=== PATIENT | female | born 1990 | race African-American/Black ===

== ENCOUNTER 2016-08-29 08:16 | Emergency (ER) | payer OTHER ==
--- NOTE | 2016-08-29 11:01 | ED CLINICAL REPORT ---
Clinical Report - Physicians/Mid Levels [facility] [address] [place] [address] 08/29/2016 8:19 Patient: TAVON GUIDRY Time Seen: 09:06; initial patient contact. Arrived- By private vehicle. Historian- patient. HISTORY OF PRESENT ILLNESS Chief Complaint: "FLU". This started about 6 days ago and is still present. The patient has had a cough, nasal congestion, a sore throat, fever and chills. She has had a nasal discharge. No skin rash, headache or sputum production. No known contact with a sick individual. Similar symptoms previously: None. Recent medical care: Not recently seen/assessed. REVIEW OF SYSTEMS The patient has had fatigue and sinus pain. No toothache or abdominal pain. All systems otherwise negative, except as recorded above. PAST HISTORY Chronic left shoulder pain. Dental infection. Surgeries: No history of previous surgery. Additional Surgeries: no known surgeries. Medications: Iud. Amoxicillin Oral (started 1 week ago for dental infx). Ibuprofen Oral. Robitussin. Allergies: Bee Sting. Severe(Anaphylaxis) Compazine. Severe(anxiety) Phenergan. Severe(hives). SOCIAL HISTORY Light tobacco smoker. History of drug use: marijuana. No alcohol use. ADDITIONAL NOTES The nursing notes have been reviewed with agreement regarding the chief complaint, PMH and patient medications and allergies. PHYSICAL EXAM Vital Signs: 08/29/2016 08:44 BP: 102/64. HR: 73. RR: 16. O2 saturation: 100%. Temp: 98.6 F. Pain level now: 8/10. Have been reviewed as normal. Appearance: Alert. No acute distress. Head: Tenderness present to percussion/palpation of the sinuses. Eyes: Eyes normal inspection. ENT: Mild generalized pharyngeal erythema with right tonsillar swelling and left tonsillar swelling. Neck: No JVD. CVS: Normal heart rate and rhythm. Heart sounds normal. Respiratory: No respiratory distress. Breath sounds normal. Abdomen: Soft and nontender. No organomegaly. Skin: Normal skin color. No rash. Extremities: No lower extremity edema. Neuro: Oriented X 3. LABS, X-RAYS, AND EKG Laboratory Tests: CBC w Diff: (JOBY: 08/29/2016 09:30) ( MsgRcvd 08/29/2016 10:05) Final results Test Result Flag Units (Reference) WHITE BLOOD COUNT 11.4 K/uL (4.5-11.5) RED BLOOD COUNT 5.30 H M/uL (4.00-5.20) HEMOGLOBIN 14.5 gm/dL (12.0-16.0) HEMATOCRIT 45.8 % (36.0-46.0) MEAN CELL VOLUME 86 fL (80-100) MEAN CORPUSCULAR HGB 27 pg (26-34) MEAN CORPUSCULAR HGB CONC 32 g/dL (31-37) RED CELL DISTRIBUTION WIDTH 13.7 % (11.6-14.8) PLATELET COUNT 316 K/uL (150-400) NEUTROPHIL % 75.3 H % (50-75) LYMPH % 15.7 L % (25-40) MONO % 6.8 % (3-14) EOSINOPHIL % 1.9 % (0-4) BASOPHIL % 0.3 % (0-2) CMP: (JOBY: 08/29/2016 09:30) ( MsgRcvd 08/29/2016 10:06) Final results Test Result Flag Units (Reference) GLUCOSE 90 mg/dL (70-110) BUN 18 mg/dL (7-18) CREATININE 0.8 mg/dL (0.6-1.3) Estimated GFR >60 mL/min Estimated GFR- >60 mL/min Note: Persistent reduction over 3 months in eGFR<60 mL/min/1.73 m2 defines CKD. Patients with eGFR values>=60 mL/min/1.73 m2 may also have CKD if evidence ofpersistent proteinuria. Additional information may be foundat www.kidney.org. SODIUM 139 mmol/L (136-145) POTASSIUM 4.2 mmol/L (3.5-5.1) CHLORIDE 103 mmol/L (98-107) CARBON DIOXIDE 25 mmol/L (21-32) CALCIUM 8.5 mg/dL (8.5-10.1) TOTAL PROTEIN 8.4 H g/dL (6.4-8.2) ALBUMIN 4.2 g/dL (3.3-5.0) BILIRUBIN, TOTAL 0.6 mg/dL (0.0-1.0) ALKALINE PHOSPHATASE 85 U/L (46-116) AST (SGOT) 20 U/L (15-37) ALT (SGPT) 19 U/L (12-78) Culture, Strep Screen: (JOBY: 08/29/2016 09:55) ( [facility] 08/29/2016 10:31) Final results Test Result Flag Units (Reference) RAPID STREP SCREEN - THROAT DATE: 08/29/16 NEGATIVE SCREEN: RAPID STREP SCREEN NEGATIVE; CONFIRMATION TO FOLLOW RSV Rapid Screen: (JOBY: 08/29/2016 09:55) [facility] Final results SPECIMEN DESCRIPTION: ... Test Result Flag Units (Reference) RAPID INFLUENZA SCREEN DATE: 08/29/16 INFLUENZA A: NEGATIVE SCREEN FOR INFLUENZA A INFLUENZA B: NEGATIVE SCREEN FOR INFLUENZA B RSV RAPID TEST DATE: 08/29/16 NEGATIVE SCREEN: NEGATIVE If Rapid RSV test is Negative but RSV is still suspected, a confirmatory RSV DFA can be requested. . PROGRESS AND PROCEDURES Course of Care: Zofran 4 mg ODT PO given. Evaluation after IV fluids. Physical exam findings are improved. Symptoms much better. Disposition: Discharged home in good condition. Condition: good. CLINICAL IMPRESSION Acute viral rhinitis. Mild nausea with vomiting. INSTRUCTIONS Do not go to school today, tomorrow. Drink plenty of fluids. Your Current Medications: CONTINUE TAKING THE FOLLOWING MEDICATIONS: Amoxicillin Oral : started 1 week ago for dental infx. Ibuprofen Oral. Iud*. Robitussin*. Prescription Medications: Zofran (orally disintegrating tablets) 4 mg: take 1 orally every 6 hours as needed for nausea and vomiting. Dispense ten (10). No refill. Substitution is permissible. Follow-up: Follow up with your doctor in about two days. Call for an appointment. Screening today revealed the patient's blood pressure to be in the pre-hypertensive range. The patient should follow up with a primary care provider for blood pressure management. (Electronically signed by Jason Rivas Dr. 08/29/2016 22:44)
--- NOTE | 2016-08-29 11:01 | ED ORDER SUMMARY ---
..... Patient: TAVON GUIDRY OrderSheet [facility] VisitID: [id number] [place] [address] 26y, F Registration Date/Time: 08/29/2016 ORDER SHEET Weight: 83.9 kg (stated) Allergies: Compazine, Phenergan, Bee Sting GENERAL ORDERS: Rapid Influenza Screen (Nasal Pharyngeal) (...) Urgent (09:08/29/2016 DMnathalie Miguel) (Ack 9:26 LNations ER Tech1) (9:55 Harsha Miguel) RSV Rapid Screen (Nasal Pharyngeal) (...) Urgent (:08/29/2016 Harsha Miguel) (Ack 9:26 LNations ER Tech1) (9:55 Harsha Miguel) CBC w Diff Urgent (:08/29/2016 Harsha Miguel) (Ack 9:26 LNations ER Tech1) (9:35 Rikyeck R.N.) CMP Urgent (09:08/29/2016 Harsha Miguel) (Ack 9:26 LNations ER Tech1) (9:35 Rikyeck R.N.) Culture, Strep Screen Urgent (:08/29/2016 Harsha Miguel) (Ack 9:26 LNations ER Tech1) (9:55 Harsha Miguel) MEDICATION ORDERS: Zofran ODT PO 4 mg (NOW) (09:08/29/2016 Harsha Miguel) (9:32 Kimberly R.N.) IV FLUIDS: IV NS : initial bolus none -, then 1000 mL/hr for X1 (NOW) (09:08/29/2016 Harsha Miguel) (9:36 Kimberly R.N.) ORDER SHEET NOTES: [Electronically signed by Artur Mayo R.N. (11:45 08/29/2016)] [Electronically signed by Jason Rivas Dr. (22:44 08/29/2016)] [Electronically locked/signed by Artur Mayo R.N. (11:45 08/29/2016)]
--- NOTE | 2016-08-29 11:01 | ED NURSING NOTES ---
Clinical Report - Nurses [facility] [address] [place] [address] 08/29/2016 8:19 Patient: TAVON GUIDRY TRIAGE Triage time 08:44. Acuity: LEVEL 4. Chief Complaint: FEVER, COUGH and BODY ACHES. 08:55 08/29/16. SEPSIS SCREEN: Sepsis Screen. Negative (no infection suspected/documented). LAINA COMA SCORE: Laina Coma Scale: 15- eyes open spontaneously (4); best verbal response- oriented x 4 (5); best motor response- obeys commands (6). --08:55 Artur Mayo R.N. 08:44 08/29/16. BP: 102/64. HR: 73. RR: 16. O2 saturation: 100% on room air. Temp: 98.6 F (oral). Pain level now: 03/14. --08:55 Artur Mayo R.N. Weight: 83.9 kg stated. Height/Length: 63 inches Per Patient. BMI: 32.8. --08:51 Artur Mayo R.N. Medications Robitussin. --08:47 Artur Mayo R.N. Ibuprofen Oral. --08:47 Artur Mayo R.N. Amoxicillin Oral (started 1 week ago for dental infx). --08:47 Artur Mayo R.N. Iud. --08:51 Artur Mayo R.N. Allergies Compazine. Severe(anxiety) --08:48 Artur Mayo R.N. Phenergan. Severe(hives) --08:48 Artur Mayo R.N. Bee Sting. Severe(Anaphylaxis) --08:48 Artur Mayo R.N. History Arrived by private vehicle. Historian: patient. Onset. (Onset 6 days ago). ( decreased appetite, taking fluids between vomiting). She has had fatigue, sinus pain, vomiting and diarrhea. She has had chest congestion (burning chest pain, coughing for 6 days). PAST MEDICAL HX: Last normal menstrual period- none since 2011. SOCIAL HX: Light tobacco smoker (cigarette)- less than 1/2 a pack per day. History of occasional drug use: marijuana. No alcohol use. No recent travel. No known contact with a sick individual. ABUSE ASSESSMENT: No report of abuse. --08:55 Artur Mayo R.N. PROBLEMS: Chronic left shoulder pain. Dental infection. --08:50 Artur Mayo R.N. ADDITIONAL SURGERIES: no known surgeries. Interventions ID band on patient. To treatment room. --08:55 Artur Mayo R.N. PHYSICAL ASSESSMENT 08:59 08/29/16. Ambulatory to room. GENERAL / NEURO / PSYCH: Alert. Oriented X 4. Appears in no acute distress. HEENT: Pupils equal, round and reactive to light. Mucous membranes are pink. RESPIRATORY: Respirations not labored. Cough. Chest wall tenderness. Wheezing present. CVS: Capillary refill less than 2 seconds. Pulses within normal limits. GI / : Abdomen soft and nontender and normal bowel sounds. SKIN: Skin intact. Skin is warm and dry. Normal skin turgor. --08:59 Artur Mayo R.N. NURSING PROGRESS NOTES 09:00 08/29/16. Patient gowned. Head of bed elevated. Reassurance given. Two patient identifiers checked. Call light placed in reach. Bed placed in lowest position. Brakes of bed on. Patient ready for evaluation- chart flagged. --09:00 Artur Mayo R.N. 09:25 08/29/2016 Zofran ODT (Ondansetron) PO Oral Disintegrating Tablets 4 mg given. Allergies verified and confirmed 5 rights. --09:32 Artur Mayo R.N. 09:30 08/29/2016 Site #1 started via IV in the left antecubital space with an 20g angiocath, with aseptic technique and good blood return; one attempt. Blood drawn: rainbow set. Labeled in the presence of the patient and sent to the lab. Saline lock flushed with 10 mL saline. --09:36 Artur Mayo R.N. 09:30 08/29/2016 Started bag #1 1000 mL IV Fluids IV NS (Saline); bolus of 1000 mL over 1 hour(s) via site #1. Allergies verified and confirmed 5 rights. IV patency established. IV site checked: no pain, redness, or swelling. IV flushed thoroughly pre- and post-medication administration. --09:36 Artur Mayo R.N. 09:45 08/29/2016 Damián LONG PO Response: no adverse reaction symptoms have improved the patient feels better. --10:12 Artur Mayo R.N. 10:10 08/29/2016 IV Fluids IV NS Discontinued: bag #1 completed. Total amount infused: 1000 mL. IV patency established. IV site checked: no pain, redness, or swelling. IV flushed thoroughly. --10:12 Artur Mayo R.N. 10:50 08/29/16. BP: 122/81. HR: 73. RR: 16. O2 saturation: 99% on room air. Pain level now: 02/11. --10:51 Artur Mayo R.N. DISPOSITION / DISCHARGE 11:42 08/29/2016 Site #1 removed upon discharge. Bandage applied. --11:42 Artur Mayo R.N. 11:43 08/29/16. Departure time: 1142. Condition at departure: improved and stable. No learning barriers present. Discharge instructions provided and reviewed with the patient. Reviewed medication(s). Treatments reviewed. Patient verbalized understanding. Written instructions provided in Cook Islander. The patient was discharged by the physician. She was discharged home. She left the Emergency Department ambulatory and via private vehicle. Patient driving. --11:43 Artur Mayo R.N. 11:38 08/29/16. BP: 117/52. HR: 65. RR: 16. O2 saturation: 100% on room air. Temp: 98.4 F (oral). Pain level now: 02/11. --11:43 Artur Mayo R.N. Locked/Released at 08/29/2016 11:45 by Artur Mayo R.N.
--- NOTE | 2016-08-29 11:01 | ED ORDER SUMMARY ---
..... Patient: TAVON GUIDRY OrderSheet [facility] VisitID: [id number] [place] [address] 26y, F Registration Date/Time: 08/29/2016 ORDER SHEET Weight: 83.9 kg (stated) Allergies: Compazine, Phenergan, Bee Sting GENERAL ORDERS: Rapid Influenza Screen (Nasal Pharyngeal) (...) Urgent (09:08/29/2016 DMnathalie Miguel) (Ack 9:26 LNations ER Tech1) (9:55 Harsha Miguel) RSV Rapid Screen (Nasal Pharyngeal) (...) Urgent (:08/29/2016 Harsha Miguel) (Ack 9:26 LNations ER Tech1) (9:55 Harsha Miguel) CBC w Diff Urgent (:08/29/2016 Harsha Miguel) (Ack 9:26 LNations ER Tech1) (9:35 Rikyeck R.N.) CMP Urgent (09:08/29/2016 Harsha Miguel) (Ack 9:26 LNations ER Tech1) (9:35 Rikyeck R.N.) Culture, Strep Screen Urgent (:08/29/2016 Harsha Miguel) (Ack 9:26 LNations ER Tech1) (9:55 Harsha Miguel) MEDICATION ORDERS: Zofran ODT PO 4 mg (NOW) (09:08/29/2016 Harsha Miguel) (9:32 Kimberly R.N.) IV FLUIDS: IV NS : initial bolus none -, then 1000 mL/hr for X1 (NOW) (09:08/29/2016 Harsha Miguel) (9:36 Kimberly R.N.) ORDER SHEET NOTES: [Electronically signed by Artur Mayo R.N. (11:45 08/29/2016)] [Electronically signed by Jason Rivas Dr. (22:44 08/29/2016)] [Electronically locked/signed by Artur Mayo R.N. (11:45 08/29/2016)]
--- NOTE | 2016-08-29 22:44 | ED MAR SUMMARY ---
..... Medication Administration Record [facility] [address] [place] [address] Patient: TAVON GUIDRY Visit ID: [id number] 26y, F Weight: 83.9 kg Height/Length: 63 in BMI: 32.8 ALLERGIES: Bee Sting, Phenergan, Compazine Given 09:25 08/29/2016 Artur Mayo R.N. Medication Administered: ZOFRAN ODT [PO] (ONDANSETRON), Dose: 4 mg Oral Disintegrating Tablets PO. Medication Ordered: Zofran ODT PO 4 mg (NOW). Start 09:30 08/29/2016 Artur Mayo R.N., Stop 10:10 08/29/2016 Artur Mayo R.N. Medication Administered: IV NS (SALINE), Dose: IV Fluids, Bolus: 1000 mL over 1 hour(s), Dispensed: 1000 mL bag, Site: #1 left AC. Medication Ordered: IV NS : initial bolus none -, then 1000 mL/hr for X1 (NOW).
--- NOTE | 2016-08-29 22:44 | ED DISCHARGE INSTRUCTIONS ---
Patient: TAVON GUIDRY General Instructions [facility] VisitID: [id number] [place] [address] 26y, F Registration Date/Time: 08/29/2016 Acute viral rhinitis. Mild nausea with vomiting. INSTRUCTIONS Do not go to school today, tomorrow. Drink plenty of fluids. Your Current Medications: CONTINUE TAKING THE FOLLOWING MEDICATIONS: Amoxicillin Oral : started 1 week ago for dental infx. Ibuprofen Oral. Iud*. Robitussin*. Prescription Medications: Zofran (orally disintegrating tablets) 4 mg: take 1 orally every 6 hours as needed for nausea and vomiting. Dispense ten (10). No refill. Substitution is permissible. Follow-up: Follow up with your doctor in about two days. Call for an appointment. Screening today revealed the patient's blood pressure to be in the pre-hypertensive range. The patient should follow up with a primary care provider for blood pressure management. ADDITIONAL INFORMATION Viral Respiratory Illness [Adult] You have an Upper Respiratory Illness (URI) caused by a virus. This illness is contagious during the first few days. It is spread through the air by coughing and sneezing or by direct contact (touching the sick person and then touching your own eyes, nose or mouth). Most viral illnesses go away within 7-10 days with rest and simple home remedies. Sometimes, the illness may last for several weeks. Antibiotics will not kill a virus and are generally not prescribed for this condition. Home Care: 1) If symptoms are severe, rest at home for the first 2-3 days. When you resume activity, don't let yourself get too tired. 2) Avoid being exposed to cigarette smoke (yours or others). 3) Tylenol (acetaminophen) or ibuprofen (Advil, Motrin) will help fever, muscle aching and headache. (Persons under 18 with fever should not take aspirin since this may cause liver damage.) 4) Your appetite may be poor, so a light diet is fine. Avoid dehydration by drinking 6-8 glasses of fluids per day (water, soft drinks, juices, tea, soup). Extra fluids will help loosen secretions in the nose and lungs. 5) Dhfu-wkn-jksmbxo cold medicines will not shorten the length of time youre sick, but they may be helpful for the following symptoms: cough (Robitussin DM); sore throat (Chloraseptic lozenges or spray); nasal and sinus congestion (Actifed, Sudafed, Chlortrimeton). Follow Up with your doctor or as advised if you dont improve over the next week. Get Prompt Medical Attention if any of the following occur: -- Cough with lots of colored sputum (mucus) or blood in your sputum -- Chest pain, shortness of breath, wheezing or have trouble breathing -- Severe headache; face, neck or ear pain -- Fever over 100.4 F (38.0 C) for more than three days -- You cant swallow due to throat pain Ondansetron Oral disintegrating tablet What is this medicine? ONDANSETRON (on EMELIA se tc) is used to treat nausea and vomiting caused by chemotherapy. It is also used to prevent or treat nausea and vomiting after surgery. How should I use this medicine? These tablets are made to dissolve in the mouth. Do not try to push the tablet through the foil backing. With dry hands, peel away the foil backing and gently remove the tablet. Place the tablet in the mouth and allow it to dissolve, then swallow. While you may take these tablets with water, it is not necessary to do so. Talk to your seasonal delivery driver regarding the use of this medicine in children. Special care may be needed. What side effects may I notice from receiving this medicine? Side effects that you should report to your doctor or health pharmacist critical care as soon as possible: allergic reactions like skin rash, itching or hives, swelling of the face, lips, or tongue breathing problems dizziness fast or irregular heartbeat feeling faint or lightheaded, falls fever and chills swelling of the hands and feet tightness in the chest Side effects that usually do not require medical attention (report to your doctor or health pharmacist critical care if they continue or are bothersome): constipation or diarrhea headache What may interact with this medicine? Do not take this medicine with any of the following medications: -apomorphine -cisapride -dofetilide -dronedarone -pimozide -thioridazine -ziprasidone This medicine may also interact with the following medications: -carbamazepine -phenytoin -rifampicin -tramadol -other medicines that prolong the QT interval (cause an abnormal heart rhythm) What if I miss a dose? If you miss a dose, take it as soon as you can. If it is almost time for your next dose, take only that dose. Do not take double or extra doses. Where should I keep my medicine? Keep out of the reach of children. Store between 2 and 30 degrees C (36 and 86 degrees F). Throw away any unused medicine after the expiration date. What should I tell my health care provider before I take this medicine? They need to know if you have any of these conditions: heart disease history of irregular heartbeat liver disease low levels of magnesium or potassium in the blood an unusual or allergic reaction to ondansetron, granisetron, other medicines, foods, dyes, or preservatives or trying to get breast-feeding What should I watch for while using this medicine? Check with your doctor or health pharmacist critical care as soon as you can if you have any sign of an allergic reaction. You have been given the following additional information: Uri, Viral, No Abx (Adult) Ondansetron Oral disintegrating tablet Do not go to school today, tomorrow. (Electronically signed by Jason Rivas Dr. 08/29/2016 22:44)
--- NOTE | 2016-08-29 22:44 | ED MAR SUMMARY ---
..... Medication Administration Record [facility] [address] [place] [address] Patient: TAVON GUIDRY Visit ID: [id number] 26y, F Weight: 83.9 kg Height/Length: 63 in BMI: 32.8 ALLERGIES: Bee Sting, Phenergan, Compazine Given 09:25 08/29/2016 Artur Mayo R.N. Medication Administered: ZOFRAN ODT [PO] (ONDANSETRON), Dose: 4 mg Oral Disintegrating Tablets PO. Medication Ordered: Zofran ODT PO 4 mg (NOW). Start 09:30 08/29/2016 Artur Mayo R.N., Stop 10:10 08/29/2016 Artur Mayo R.N. Medication Administered: IV NS (SALINE), Dose: IV Fluids, Bolus: 1000 mL over 1 hour(s), Dispensed: 1000 mL bag, Site: #1 left AC. Medication Ordered: IV NS : initial bolus none -, then 1000 mL/hr for X1 (NOW).
--- NOTE | 2016-08-29 22:44 | ED MED RECONCILIATION SUMMARY ---
Patient: TAVON GUIDRY Medication Reconciliation Report [facility] VisitID: [id number] [address] [place] [address] 26y, F Registration Date/Time: 08/29/2016 Weight: 83.9 kg Height/Length: 63 in. BMI: 32.8 ALLERGIES: Bee Sting, Compazine, Phenergan The patient's Home Medications are listed below: CONTINUE TAKING THE FOLLOWING MEDICATIONS: Amoxicillin Oral, started 1 week ago for dental infx Ibuprofen Oral Iud Robitussin The source(s) of the original Home Medication information: Not obtained. The following Medications were given to the patient in the Emergency Department: Zofran ODT [PO] PO 4 mg, administered: 08/29/2016 9:25:00 AM IV NS IV Fluids bolus 1000 mL over 1 hour(s), administered: 08/29/2016 9:30:00 AM The following Medications were prescribed to the patient: Zofran (orally disintegrating tablets) 4 mg: take 1 orally every 6 hours as needed for nausea and vomiting. Dispense ten (10). No refill. Substitution is permissible. -- Jason Rivas Dr.
--- NOTE | 2016-08-29 22:44 | ED DISCHARGE INSTRUCTIONS ---
Patient: TAVON GUIDRY General Instructions [facility] VisitID: [id number] [place] [address] 26y, F Registration Date/Time: 08/29/2016 Acute viral rhinitis. Mild nausea with vomiting. INSTRUCTIONS Do not go to school today, tomorrow. Drink plenty of fluids. Your Current Medications: CONTINUE TAKING THE FOLLOWING MEDICATIONS: Amoxicillin Oral : started 1 week ago for dental infx. Ibuprofen Oral. Iud*. Robitussin*. Prescription Medications: Zofran (orally disintegrating tablets) 4 mg: take 1 orally every 6 hours as needed for nausea and vomiting. Dispense ten (10). No refill. Substitution is permissible. Follow-up: Follow up with your doctor in about two days. Call for an appointment. Screening today revealed the patient's blood pressure to be in the pre-hypertensive range. The patient should follow up with a primary care provider for blood pressure management. ADDITIONAL INFORMATION Viral Respiratory Illness [Adult] You have an Upper Respiratory Illness (URI) caused by a virus. This illness is contagious during the first few days. It is spread through the air by coughing and sneezing or by direct contact (touching the sick person and then touching your own eyes, nose or mouth). Most viral illnesses go away within 7-10 days with rest and simple home remedies. Sometimes, the illness may last for several weeks. Antibiotics will not kill a virus and are generally not prescribed for this condition. Home Care: 1) If symptoms are severe, rest at home for the first 2-3 days. When you resume activity, don't let yourself get too tired. 2) Avoid being exposed to cigarette smoke (yours or others). 3) Tylenol (acetaminophen) or ibuprofen (Advil, Motrin) will help fever, muscle aching and headache. (Persons under 18 with fever should not take aspirin since this may cause liver damage.) 4) Your appetite may be poor, so a light diet is fine. Avoid dehydration by drinking 6-8 glasses of fluids per day (water, soft drinks, juices, tea, soup). Extra fluids will help loosen secretions in the nose and lungs. 5) [id number] cold medicines will not shorten the length of time youre sick, but they may be helpful for the following symptoms: cough (Robitussin DM); sore throat (Chloraseptic lozenges or spray); nasal and sinus congestion (Actifed, Sudafed, Chlortrimeton). Follow Up with your doctor or as advised if you dont improve over the next week. Get Prompt Medical Attention if any of the following occur: -- Cough with lots of colored sputum (mucus) or blood in your sputum -- Chest pain, shortness of breath, wheezing or have trouble breathing -- Severe headache; face, neck or ear pain -- Fever over 100.4 F (38.0 C) for more than three days -- You cant swallow due to throat pain Ondansetron Oral disintegrating tablet What is this medicine? ONDANSETRON (on EMELIA se tc) is used to treat nausea and vomiting caused by chemotherapy. It is also used to prevent or treat nausea and vomiting after surgery. How should I use this medicine? These tablets are made to dissolve in the mouth. Do not try to push the tablet through the foil backing. With dry hands, peel away the foil backing and gently remove the tablet. Place the tablet in the mouth and allow it to dissolve, then swallow. While you may take these tablets with water, it is not necessary to do so. Talk to your nailer operator regarding the use of this medicine in children. Special care may be needed. What side effects may I notice from receiving this medicine? Side effects that you should report to your doctor or health manager of care as soon as possible: allergic reactions like skin rash, itching or hives, swelling of the face, lips, or tongue breathing problems dizziness fast or irregular heartbeat feeling faint or lightheaded, falls fever and chills swelling of the hands and feet tightness in the chest Side effects that usually do not require medical attention (report to your doctor or health manager of care if they continue or are bothersome): constipation or diarrhea headache What may interact with this medicine? Do not take this medicine with any of the following medications: -apomorphine -cisapride -dofetilide -dronedarone -pimozide -thioridazine -ziprasidone This medicine may also interact with the following medications: -carbamazepine -phenytoin -rifampicin -tramadol -other medicines that prolong the QT interval (cause an abnormal heart rhythm) What if I miss a dose? If you miss a dose, take it as soon as you can. If it is almost time for your next dose, take only that dose. Do not take double or extra doses. Where should I keep my medicine? Keep out of the reach of children. Store between 2 and 30 degrees C (36 and 86 degrees F). Throw away any unused medicine after the expiration date. What should I tell my health care provider before I take this medicine? They need to know if you have any of these conditions: heart disease history of irregular heartbeat liver disease low levels of magnesium or potassium in the blood an unusual or allergic reaction to ondansetron, granisetron, other medicines, foods, dyes, or preservatives or trying to get breast-feeding What should I watch for while using this medicine? Check with your doctor or health manager of care as soon as you can if you have any sign of an allergic reaction. You have been given the following additional information: Uri, Viral, No Abx (Adult) Ondansetron Oral disintegrating tablet Do not go to school today, tomorrow. (Electronically signed by Jason Rivas Dr. 08/29/2016 22:44)
--- NOTE | 2016-08-29 22:44 | ED MED RECONCILIATION SUMMARY ---
Patient: TAVON GUIDRY Medication Reconciliation Report [facility] VisitID: [id number] [place] [address] 26y, F Registration Date/Time: 08/29/2016 Weight: 83.9 kg Height/Length: 63 in. BMI: 32.8 ALLERGIES: Bee Sting, Compazine, Phenergan The patient's Home Medications are listed below: CONTINUE TAKING THE FOLLOWING MEDICATIONS: Amoxicillin Oral, started 1 week ago for dental infx Ibuprofen Oral Iud Robitussin The source(s) of the original Home Medication information: Not obtained. The following Medications were given to the patient in the Emergency Department: Zofran ODT [PO] PO 4 mg, administered: 08/29/2016 9:25:00 AM IV NS IV Fluids bolus 1000 mL over 1 hour(s), administered: 08/29/2016 9:30:00 AM The following Medications were prescribed to the patient: Zofran (orally disintegrating tablets) 4 mg: take 1 orally every 6 hours as needed for nausea and vomiting. Dispense ten (10). No refill. Substitution is permissible. -- Jason Rivas Dr.
== END 2016-08-29 11:42 | disposition home or self-care (01) ==
LOC: ED SRH 08:16
DX: J00 Acute nasopharyngitis [common cold] (principal); B97.89 Other viral agents as the cause of diseases classified elsewhere; R11.2 Nausea with vomiting, unspecified; F17.210 Nicotine dependence, cigarettes, uncomplicated
CPT/HCPCS: 90100; 90154; 90159; 90627; 91400; 91576; 95059